=== PATIENT | male | born 1990 | race African-American/Black ===

== ENCOUNTER → 2018-09-23 | Emergency (ER) | payer SELFPAY ==
[~2018-09-23] VITALS: Ht 167.6 cm; Wt 81.6 kg
[~2018-09-23] MED LIST: IBUPROFEN 800 MG TAB PO ONE; KETOROLAC TROMETH 60MG/2ML VIAL IM ONE
[2018-09-23 12:03] VITALS: BP 141/87
== END | disposition home or self-care (01) ==
LOC: ER 10:42
DX: S83.91XA Sprain of unspecified site of right knee, initial encounter (principal); F17.210 Nicotine dependence, cigarettes, uncomplicated; F12.10 Cannabis abuse, uncomplicated; W22.8XXA Striking against or struck by other objects, initial encounter; Y93.89 Activity, other specified; Y99.8 Other external cause status; Y92.89 Other specified places as the place of occurrence of the external cause
CPT/HCPCS: 73562

== ENCOUNTER 2024-08-03 08:31 | Emergency (ER) | payer MEDICAID ==
[~2024-08-03] VITALS: Ht 167.6 cm; Wt 90.6 kg
[2024-08-03 08:56] VITALS: BP 129/81; PULSE 85; RESP 18; TEMP 98.9; O2SAT 97
--- NOTE | 2024-08-03 09:40 | DVH ---
EXAMINATION: XY L RIB X RAY INDICATION: Pain with inhalation. Rule out pneumothorax fracture etc COMPARISON: None TECHNIQUE: Frontal view of the chest and oblique views of the left ribs were obtained. FINDINGS: No focal consolidation, pleural effusion or significant pneumothorax. Normal cardiomediastinal silhou ette. No displaced left rib fracture. There is sclerotic appearance of the proximal left humerus. IMPRESSION: 1. No acute cardiopulmonary disease. No pneumothorax. No displaced left rib fracture.
[2024-08-03] MEDS ORDERED: ALBU108A5 IN (09:49)
[2024-08-03] MEDS ORDERED: NAPR-746 PO (09:49)
--- NOTE | 2024-08-03 09:49 | ED.PDOC ---
SOB-HPI HPI Comments This is a pleasant 33-year-old male with no MHx that presents with a chief complaint of intermittent atraumatic nonradiating left-sided rib pain with deep inhalation. Onto started three days ago Denies history of SC or CVA Denies lightheadedness or dizziness Denies acid reflux, recurrent bitter/sour taste in mouth Denies palpitations, leg swelling Denies family history of heart issues or SC Denies history of panic attacks Denies recent trauma to the chest, history of significant trauma to the chest nor surgeries of the chest Denies fever chills nausea vomiting diarrhea Chief Complaint: Rib Pain Time Seen by MD: 08:40 Reviewed notes: Nurses Notes, Medications, Allergies Information Source: Patient Mode of Arrival: Ambulatory Past Medical History PAST MEDICAL HISTORY: Denies Surgical History: Denies all surgeries Family History Family History: Reviewed,noncontributory to illness, Unknown Social History Smoker: Cigarettes Drugs: Marijuana Lives In: Home All Other Systems: Reviewed and Negative (per hpi) Physical Exam General Appearance: No Apparent Distress, Normal HEENT: Normal ENT Inspection, Pharynx Normal, TMs Normal Neck: Full Range of Motion, Non-Tender, Normal, Normal Inspection Respiratory: Chest Non-Tender, Lungs Clear, No Accessory Muscle Use, No Respiratory Distress, Normal Breath Sounds Cardiovascular: No Edema, No JVD, No Murmur, No Gallop, Normal Peripheral Pulses, Regular Rate/Rhythm Breast Exam: Deferred Gastrointestinal: No Organomegaly, Non Tender, No Pulsatile Mass, Normal Bowel Sounds, Soft Genitalia: Deferred Pelvic: Deferred Rectal: Deferred Extremities: No calf tenderness, Normal capillary refill, Normal inspection, Normal range of motion, Non-tender, No pedal edema Musculoskeletal : Apperance: Normal Neurologic: Alert, unit control clerk II-XII nml as Tested, No Motor Deficits, Normal Affect, Normal Mood, No Sensory Deficits Cerebellar Function: Normal Reflexes: Normal Skin: Dry, Normal Color, Warm Lymphatic: No Adenopathy Was a procedure done? Was a procedure done?: No Differential Dx Differential Diagnosis: Asthma X-Ray, Labs, Meds, VS Vital Signs Date Time Temp Pulse Resp B/P (MAP) Pulse Ox O2 Delivery O2 Flow Rate FiO2 08/03/24 08:56 85 18 97 Room Air 08/03/24 08:56 98.9 85 18 129/81 (97) 97 98.9 08/03/24 08:41 98.9 85 18 129/81 (97) 97 98.9 08/03/24 08:40 18 97 Room Air* 0 21 X-Ray, Labs, Meds, VS Comment Considered fracture, pneumothorax, pneumonia, has been either extubation. Imaging ordered and no acute findings were found No isolated rib fractures Young, otherwise healthy patient Good respiratory effort and cough (able to clear respiratory secretions) Pain controlled with PO medications On reevaluation, patient had symptomatic improvement. Patient is stable for discharge at this time. External notes reviewed. Test results and diagnostic imaging interpreted. All diagnostic findings, discharge care, education and instructions provided Follow-up with PCP in 2 to 3 days Patient verbalized understanding and agreed to treatment plan Vital signs stable, afebrile, no acute distress noted Patient ambulatory with strong steady gait Advised to return precautions for any new or worsening symptoms, return to ER immediately for re-evaluation Patient is aware that the purpose of this visit was for an acute medical emergency requiring emergent stabilization. Chronic conditions, including malignancies have not been ruled out. Patient is instructed to follow up with PCP as directed and discharge instructions for continued care and workup. If unable to arrange follow-up, patient is to return to the emergency department for reassessment. Patient (parent or legal guardian if applicable) was given verbal and written discharge instructions and acknowledges understanding. Time of 1ST Reevaluation: 09:47 Reevaluation 1ST: Improved Patient Education/Counseling: Diagnosis, Treatment Family Education/Counseling: Diagnosis, Treatment Departure 1 Departure Time of Disposition: 09:48 Impression: Primary Impression: Rib pain on left side Disposition: HOME / SELF CARE / HOMELESS Condition: Stable e-Prescriptions Naproxen (Naproxen) 500 Mg Tab 500 MG PO BIDPC for 10 Days, #20 TAB 0 Refills Prov: DARWIN MEDINA NP 08/03/24 Albuterol Sulfate (Albuterol Sulfate Hfa) 108 Mcg/Act Aer 108 MCG IN Q6HP PRN for 10 Days, #1 AER 0 Refills Prov: DARWIN MEDINA CUSTOMER SERVICE [employer]ATE 08/03/24 Discharged With: Self Critical Care Note Critical Care Time?: No Stability Stability form required: No Heart Score Heart Score: Heart Score Response (Comments) Value History N/A 0 EKG N/A 0 Age N/A 0 Risk Factors N/A 0 Troponin N/A 0 Total 0 DARWIN MEDINA [employer] Aug 03, 2024 09:49
== END 2024-08-03 09:54 | disposition home or self-care (01) ==
LOC: ER 08:31
DX: R07.81 Pleurodynia (principal); F17.210 Nicotine dependence, cigarettes, uncomplicated
CPT/HCPCS: 71101